=== PATIENT | female | born 1990 | race Caucasian/White ===

== ENCOUNTER 2017-11-14 00:42 | Emergency (ER) | payer OTHER ==
[~2017-11-14] VITALS: Ht 160 cm; Wt 49.9 kg
[~2017-11-14 00:42] MED LIST: BIRTH CONTROL; IRON134 MG PO; ZPAK PO; [UNRECOGNIZED DRUG - OTHER]
[2017-11-14 01:14] LABS: HEMATOCRIT 38.8 % (37.0-47.0); HEMOGLOBIN 12.9 gm/dL (12.0-15.0); MCH 27.9 pg (26.0-34.0); MCHC 33.1 g/dL (28.0-37.0); MCV 84.4 fL (80.0-100.0); MPV 8.7 fl. (7.2-11.1); NUCLEATED RBCS 0 /100WBC; PLATELET COUNT* 128 thou/uL (150-400); RDW-CV 14.3 % (10.5-14.5); WBC 10.9 thou/uL (4.0-11.0)
[2017-11-14 01:25] LABS: CALCIUM 8.7 mg/dL (8.5-10.1); CREATININE 1.3 mg/dL (0.6-1.3)
[2017-11-14 01:27] LABS: POTASSIUM 2.5 mmol/L (3.5-5.1)
[2017-11-14 01:30] LABS: ALBUMIN 3.1 g/dL (3.4-5.0); TOTAL BILIRUBIN 0.4 mg/dL (<0.1-1.0); TOTAL PROTEIN 7.8 g/dL (6.4-8.2)
[2017-11-14 02:37] LABS: URINE BILIRUBIN 1+ (Negative); URINE BLOOD 3+ (Negative); URINE CLARITY SL CLOUDY; URINE COLOR DARK YELLOW; URINE GLUCOSE-RANDOM NEGATIVE (Negative); URINE KETONES TRACE (Negative); URINE LEUKOCYTES-REFLEX 2+ (Negative); URINE NITRITE-REFLEX NEGATIVE (Negative); URINE PROTEIN 2+ (Negative); URINE SPECIFIC GRAVITY 1.025 (1.005-1.030)
[2017-11-14 02:42] LABS: ABSOLUTE LYMPHOCYTES 0.9 thou/uL (0.8-5.3); ABSOLUTE MONOCYTES 0.4 thou/uL (0.0-1.2); ABSOLUTE NEUTROPHILS 9.6 thou/uL (1.6-8.1); ANISOCYTOSIS Occasional; PLATELET ESTIMATE DECREASED
[2017-11-14 02:46] LABS: AMORPHOUS URATES Moderate /LPF (None Seen); BACTERIA-REFLEX >30 Many /HPF (None Seen); CASTS None Seen /LPF (None Seen); MUCUS 4-6 Moderate strn/LPF (None Seen); SQUAMOUS 0-3 Few /LPF (0-3); TRANSITIONAL EPITHEL CELL 0-3 Few /LPF (None Seen); URINE RBC >20 Many /HPF (0-2)
[2017-11-14 02:52] LABS: AMP/METHAMP Negative (Negative); BARBITURATES Negative (Negative); BENZODIAZEPINES Negative (Negative); COCAINE Negative (Negative); METHADONE Negative (Negative); OPIATES Negative (Negative); PCP Negative (Negative); THC Negative (Negative)
[2017-11-14] MEDS ORDERED: BACTRIM DS TAB1 EAC1 PO (05:32)
[2017-11-14 05:50] VITALS: BP 113/80
--- NOTE | 2017-11-14 13:22 | EKG ---
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: MARIBEL : 1990 Requested By: Jaja Garcias Order Number: [id number] MD: Jorge Rodriguez Measurements Intervals [place] Rate: 111 P: 73 [place]: 155 QRS: -17 QRSD: 92 T: 62 QT: 315 QTc: 428 Interpretive Statements Sinus tachycardia Biatrial enlargement Borderline left axis deviation RSR' in V1 or V2, probably normal variant Compared to ECG 08/17/2009 13:35:03 Atrial abnormality now present RSR' in V1 or V2 now present Sinus rhythm no longer present Electronically Signed On 11-14-2017 13:21:59 CDT by Jorge Rodriguez [email or web address] <ELECTRONICALLY SIGNED> By: Jorge Rodriguez MD, FACC 11/14/17 1321 0135 [id number] Jorge Rodriguez MD, FAC /EPI
== END 2017-11-14 06:03 | disposition home or self-care (01) ==
LOC: M.ERS 00:42
PROVIDERS: Personal Emergency Response Attendant
DX: R55 Syncope and collapse (principal); E87.6 Hypokalemia; N39.0 Urinary tract infection, site not specified; Z88.1 Allergy status to other antibiotic agents